=== PATIENT | female | born 1925 | race Caucasian/White ===

== ENCOUNTER 2017-08-01 00:52 | Emergency (ER) | payer SELFPAY ==
[2017-08-01 01:38] LABS: BASOPHIL % 1.6 % (0-2); PLATELET COUNT 323 x10^3mcL (130-400)
[2017-08-01 01:45] LABS: RED CELL DISTRIBUTION WIDTH 15.2 % (11.5-14.5)
[2017-08-01 02:02] LABS: CALCIUM 9.4 mg/dL (8.5-10.1); CARBON DIOXIDE 34.4 mmol/L (21-32); CHLORIDE SERUM 98 mmol/L (98-107); CREATININE SERUM 0.8 mg/dL (0.6-1.0); GLUCOSE SERUM 130 mg/dL (74-106); POTASSIUM SERUM 3.6 mmol/L (3.5-5.1); SODIUM SERUM 138 mmol/L (136-145)
[2017-08-01 02:06] LABS: ALBUMIN 3.4 g/dL (3.4-5.0); ALKALINE PHOSPHATASE 110 U/L (46-116); ALT/SGPT 21 U/L (14-59); AST/SGOT 29 U/L (15-37); BILIRUBIN TOTAL 0.33 mg/dL (0.20-1.00)
[2017-08-01 02:07] LABS: TOTAL PROTEIN, SERUM 8.7 g/dL (6.4-8.2)
[2017-08-01 02:41] VITALS: BP 166/85
== END 2017-08-01 02:41 | disposition home or self-care (01) ==
LOC: ED 00:52
PROVIDERS: Emergency Medicine
DX: R55 Syncope and collapse (principal); I10 Essential (primary) hypertension; Z88.2 Allergy status to sulfonamides
CPT/HCPCS: 36415; Q0092